=== PATIENT | female | born 1985 | race Caucasian/White ===

== ENCOUNTER 2018-07-21 09:07 | Emergency (ER) | payer BC ==
[2018-07-21] MEDS: FAMOTIDINE 20 MG INJ IV (10:16)
[2018-07-21] MEDS: KETOROLAC 30 MG INJ IV (10:16)
[2018-07-21] MEDS: SOD CHLORIDE 0.9% 1,000 ML IV (10:16)
[2018-07-21] MEDS: ONDANSETRON 4 MG INJ IV (10:16)
[2018-07-21 10:25] LABS: ADD UMIC YES; UR ASCORBIC ACID NEGATIVE (NEGATIVE); UR BACTERIA FEW /HPF (NONE SEEN); UR BILIRUBIN (Dip) NEGATIVE (NEGATIVE); UR BLOOD (Dip) 1+ mg/dL (NEGATIVE); UR CLARITY CLOUDY (CLEAR); UR COLOR YELLOW (YELLOW); UR GLUCOSE (Dip) NEGATIVE (NEGATIVE); UR KETONES (Dip) NEGATIVE (NEGATIVE); UR LEUKOCYTE ESTERASE (Dip) 3+ Leu/ul (NEGATIVE); UR MUCUS FEW /HPF (NONE SEEN); UR NITRITE (Dip) NEGATIVE (NEGATIVE); UR RBC 5 /HPF (0-5); UR SPECIFIC GRAVITY (Dip) 1.014 (1.003-1.030); UR SQUAMOUS EPITHELIAL CELL MODERATE /HPF (FEW); UR TOTAL PROTEIN (Dip) NEGATIVE (NEGATIVE); UR UROBILINOGEN (Dip) NEGATIVE (NEGATIVE); UR WBC > 182 /HPF (0-5)
[2018-07-21 10:35] LABS: ADD MAN DIFF? NO
[2018-07-21 10:37] LABS: BASOPHIL # 0.1 10^3/ul (0.0-0.1); BASOPHILS % 0.6 % (0.0-2.0); EOSINOPHILS # 0.1 10^3/ul (0.0-0.5); EOSINOPHILS % 1.7 % (0.0-7.0); HEMATOCRIT 36.2 % (37.0-47.0); HEMOGLOBIN 11.7 g/dl (12.0-16.0); LYMPHOCYTES # 2.5 10^3/ul (0.8-2.9); LYMPHOCYTES % 31.5 % (15.0-51.0); MEAN CORPUSCULAR HEMOGLOBIN 28.4 pg (29.0-33.0); MEAN CORPUSCULAR HGB CONC 32.3 g/dl (32.0-37.0); MEAN CORPUSCULAR VOLUME 87.9 fl (82.0-101.0); MEAN PLATELET VOLUME 9.4 fl (7.4-10.4); MONOCYTE # 0.5 10^3/ul (0.3-0.9); MONOCYTES % 6.5 % (0.0-11.0); NEUTROPHIL # 4.7 10^3/ul (1.6-7.5); NEUTROPHILS % 59.2 % (39.0-77.0); PLATELET COUNT 241 10^3/UL (140-415); RED BLOOD COUNT 4.12 10^6/ul (4.20-5.40); RED CELL DISTRIBUTION WIDTH 13.2 % (11.5-14.5)
[2018-07-21 10:59] LABS: ALANINE AMINOTRANSFERASE 39 IU/L (13-69); ALBUMIN 3.7 g/dl (3.3-4.9); ALBUMIN/GLOBULIN RATIO 1.08; ALKALINE PHOSPHATASE 63 IU/L (42-121); ANION GAP 7 (5-13); ASPARTATE AMINO TRANSFERASE 25 IU/L (15-46); BLOOD UREA NITROGEN 7 mg/dl (7-20); CALCIUM 8.8 mg/dl (8.4-10.2); CARBON DIOXIDE 27 mmol/L (21-31); CHLORIDE 107 mmol/L (97-110); Estimated GFR > 60 mL/min (>60); GLUCOSE 91 mg/dl (70-220); LIPASE 106 U/L (23-300); POTASSIUM 3.6 mmol/L (3.5-5.1); SODIUM 141 mmol/L (135-144); TOTAL PROTEIN 7.1 g/dl (6.1-8.1)
== END 2018-07-21 13:17 | disposition home or self-care (01) ==
LOC: FTE 09:07
DX: K80.20 Calculus of gallbladder without cholecystitis without obstruction (principal)
CPT/HCPCS: 76705; 80053; 81001; 81025; 83690; 85025; 96361; 96374; 96375; 99285-25

== ENCOUNTER 2018-07-22 14:05 | Inpatient (IN) | payer BC ==
[2018-07-22 17:36] LABS: ADD MAN DIFF? NO
[2018-07-22 17:43] LABS: BASOPHIL # 0.1 10^3/ul (0.0-0.1); BASOPHILS % 0.4 % (0.0-2.0); EOSINOPHILS % 0.1 % (0.0-7.0); HEMATOCRIT 41.6 % (37.0-47.0); HEMOGLOBIN 13.6 g/dl (12.0-16.0); LYMPHOCYTES # 1.9 10^3/ul (0.8-2.9); LYMPHOCYTES % 14.5 % (15.0-51.0); MEAN CORPUSCULAR HEMOGLOBIN 28.1 pg (29.0-33.0); MEAN CORPUSCULAR HGB CONC 32.7 g/dl (32.0-37.0); MEAN PLATELET VOLUME 9.8 fl (7.4-10.4); MONOCYTE # 0.5 10^3/ul (0.3-0.9); MONOCYTES % 3.6 % (0.0-11.0); NEUTROPHIL # 10.8 10^3/ul (1.6-7.5); PLATELET COUNT 298 10^3/UL (140-415); RED BLOOD COUNT 4.84 10^6/ul (4.20-5.40); RED CELL DISTRIBUTION WIDTH 13.4 % (11.5-14.5)
[2018-07-22 17:43] LABS: WHITE BLOOD COUNT 13.3 10^3/ul (4.8-10.8)
[2018-07-22] MEDS: morphine 4 MG/ML VIAL IV (17:43)
[2018-07-22] MEDS: SOD CHLORIDE 0.9% 1,000 ML IV (17:44)
[2018-07-22] MEDS: ONDANSETRON 4 MG INJ IV (17:44)
[2018-07-22 18:05] LABS: INR 0.88; PARTIAL THROMBOPLASTIN TIME 26.6 Sec (23.0-35.0); PT RATIO 0.9
[2018-07-22 18:06] LABS: ALANINE AMINOTRANSFERASE 45 IU/L (13-69); ALBUMIN 4.7 g/dl (3.3-4.9); ALBUMIN/GLOBULIN RATIO 1.11; ALKALINE PHOSPHATASE 87 IU/L (42-121); ANION GAP 13 (5-13); ASPARTATE AMINO TRANSFERASE 41 IU/L (15-46); BILIRUBIN,INDIRECT 0.3 mg/dl (0-1.1); BILIRUBIN,TOTAL 0.3 mg/dl (0.2-1.3); BLOOD UREA NITROGEN 10 mg/dl (7-20); CALCIUM 9.7 mg/dl (8.4-10.2); CARBON DIOXIDE 23 mmol/L (21-31); CHLORIDE 104 mmol/L (97-110); CREATININE 0.59 mg/dl (0.44-1.00); Estimated GFR > 60 mL/min (>60); GLUCOSE 97 mg/dl (70-220); LIPASE 124 U/L (23-300); POTASSIUM 3.6 mmol/L (3.5-5.1); SODIUM 140 mmol/L (135-144); TOTAL PROTEIN 8.9 g/dl (6.1-8.1)
[2018-07-22] MEDS ORDERED: morphine 4 MG/ML VIAL IV (22:00)
[2018-07-22] MEDS ORDERED: HYDROCODONE/APAP (5/325) TAB PO (22:00)
[2018-07-22] MEDS ORDERED: ACETAMINOPHEN 500 MG TAB PO (22:00)
[2018-07-22] MEDS: D5W-0.45 NACL + KCL 20 MEQ 1,000 ML IV (22:32)
[2018-07-22] MEDS: morphine 2 MG INJ IV (22:44)
[2018-07-22] MEDS: LEVOFLOXACIN 500MG/D5W (PMX) 100 ML IVPB (22:44)
[2018-07-23 05:16] LABS: ADD MAN DIFF? NO
[2018-07-23 05:19] LABS: WHITE BLOOD COUNT 9.1 10^3/ul (4.8-10.8)
[2018-07-23 05:19] LABS: BASOPHIL # 0.1 10^3/ul (0.0-0.1); BASOPHILS % 0.6 % (0.0-2.0); EOSINOPHILS # 0.1 10^3/ul (0.0-0.5); EOSINOPHILS % 0.7 % (0.0-7.0); HEMOGLOBIN 11.5 g/dl (12.0-16.0); LYMPHOCYTES # 2.8 10^3/ul (0.8-2.9); LYMPHOCYTES % 30.6 % (15.0-51.0); MEAN CORPUSCULAR HEMOGLOBIN 27.7 pg (29.0-33.0); MEAN CORPUSCULAR HGB CONC 31.9 g/dl (32.0-37.0); MEAN CORPUSCULAR VOLUME 86.7 fl (82.0-101.0); MEAN PLATELET VOLUME 10.3 fl (7.4-10.4); MONOCYTE # 0.7 10^3/ul (0.3-0.9); MONOCYTES % 7.3 % (0.0-11.0); NEUTROPHIL # 5.5 10^3/ul (1.6-7.5); NEUTROPHILS % 60.5 % (39.0-77.0); PLATELET COUNT 252 10^3/UL (140-415); RED BLOOD COUNT 4.15 10^6/ul (4.20-5.40); RED CELL DISTRIBUTION WIDTH 13.6 % (11.5-14.5)
[2018-07-23 05:43] LABS: ALANINE AMINOTRANSFERASE 36 IU/L (13-69); ALBUMIN 3.5 g/dl (3.3-4.9); ALBUMIN/GLOBULIN RATIO 1.09; ALKALINE PHOSPHATASE 59 IU/L (42-121); AMYLASE 64 U/L (11-123); ANION GAP 6 (5-13); ASPARTATE AMINO TRANSFERASE 31 IU/L (15-46); BILIRUBIN,INDIRECT 0.3 mg/dl (0-1.1); BILIRUBIN,TOTAL 0.3 mg/dl (0.2-1.3); BLOOD UREA NITROGEN 10 mg/dl (7-20); CALCIUM 8.8 mg/dl (8.4-10.2); CARBON DIOXIDE 25 mmol/L (21-31); CHLORIDE 110 mmol/L (97-110); CREATININE 0.61 mg/dl (0.44-1.00); Estimated GFR > 60 mL/min (>60); GLUCOSE 86 mg/dl (70-220); LIPASE 109 U/L (23-300); POTASSIUM 4.2 mmol/L (3.5-5.1); SODIUM 141 mmol/L (135-144); TOTAL PROTEIN 6.7 g/dl (6.1-8.1)
[2018-07-23 08:54] LABS: INR 1.01; PROTIME 13.4 Sec (11.9-14.9)
[2018-07-23 08:55] LABS: PARTIAL THROMBOPLASTIN TIME 29.2 Sec (23.0-35.0)
[2018-07-23] MEDS: INFLUENZA VIRUS VACCINE 0.5 ML (DISPENSING) IM* (09:00)
[2018-07-23] MEDS: D5W-0.45 NACL + KCL 20 MEQ 1,000 ML IV ×3 (10:10→22:35)
[2018-07-23] MEDS: morphine 2 MG INJ IV ×2 (10:38→18:32)
[2018-07-23] MEDS: LEVOFLOXACIN 500MG/D5W (PMX) 100 ML IVPB (21:21)
[2018-07-24] MEDS: morphine 2 MG INJ IV ×3 (03:39→22:20)
[2018-07-24] MEDS: D5W-0.45 NACL + KCL 20 MEQ 1,000 ML IV ×3 (04:00→19:34)
[2018-07-24 15:28] LABS: ALANINE AMINOTRANSFERASE 50 IU/L (13-69); ALKALINE PHOSPHATASE 72 IU/L (42-121); ANION GAP 7 (5-13); ASPARTATE AMINO TRANSFERASE 41 IU/L (15-46); BILIRUBIN,INDIRECT 0.3 mg/dl (0-1.1); BILIRUBIN,TOTAL 0.3 mg/dl (0.2-1.3); BLOOD UREA NITROGEN 6 mg/dl (7-20); CARBON DIOXIDE 23 mmol/L (21-31); CHLORIDE 110 mmol/L (97-110); CREATININE 0.55 mg/dl (0.44-1.00); Estimated GFR > 60 mL/min (>60); GLUCOSE 90 mg/dl (70-220); POTASSIUM 4.2 mmol/L (3.5-5.1); SODIUM 140 mmol/L (135-144)
[2018-07-24 15:29] LABS: ALBUMIN 3.8 g/dl (3.3-4.9); ALBUMIN/GLOBULIN RATIO 1.11; TOTAL PROTEIN 7.2 g/dl (6.1-8.1)
[2018-07-24] MEDS: LEVOFLOXACIN 500MG/D5W (PMX) 100 ML IVPB (21:23)
[2018-07-25 05:31] LABS: ADD MAN DIFF? NO
[2018-07-25 05:42] LABS: WHITE BLOOD COUNT 6.5 10^3/ul (4.8-10.8)
[2018-07-25 05:42] LABS: BASOPHILS % 0.6 % (0.0-2.0); EOSINOPHILS # 0.1 10^3/ul (0.0-0.5); EOSINOPHILS % 2.2 % (0.0-7.0); HEMATOCRIT 36.7 % (37.0-47.0); LYMPHOCYTES # 2.1 10^3/ul (0.8-2.9); LYMPHOCYTES % 32.3 % (15.0-51.0); MEAN CORPUSCULAR HEMOGLOBIN 28.1 pg (29.0-33.0); MEAN CORPUSCULAR HGB CONC 32.7 g/dl (32.0-37.0); MEAN CORPUSCULAR VOLUME 85.9 fl (82.0-101.0); MONOCYTE # 0.5 10^3/ul (0.3-0.9); MONOCYTES % 7.7 % (0.0-11.0); NEUTROPHIL # 3.7 10^3/ul (1.6-7.5); PLATELET COUNT 243 10^3/UL (140-415); RED BLOOD COUNT 4.27 10^6/ul (4.20-5.40); RED CELL DISTRIBUTION WIDTH 13.5 % (11.5-14.5)
[2018-07-25 06:00] LABS: LIPASE 134 U/L (23-300)
[2018-07-25] MEDS: D5W-0.45 NACL + KCL 20 MEQ 1,000 ML IV ×3 (06:35→19:23)
[2018-07-25] MEDS: morphine 2 MG INJ IV ×3 (06:37→22:53)
[2018-07-25] MEDS ORDERED: CIPRO 400 MG/200 ML D5W IVPB (07:00)
[2018-07-25] MEDS ORDERED: IOHEXOL 300MG/ML 30 ML BTL (10:16)
[2018-07-25] MEDS ORDERED: PROPOFOL 20 ML (10:24)
[2018-07-25] MEDS ORDERED: ROCURONIUM 50 MG INJ (10:26)
[2018-07-25] MEDS ORDERED: DEXAMETHASONE 4 MG/ML 5 ML INJ (11:05)
[2018-07-25] MEDS ORDERED: ONDANSETRON 4 MG INJ (11:05)
[2018-07-25] MEDS ORDERED: NEOSTIGMINE 10 MG INJ (11:39)
[2018-07-25] MEDS ORDERED: GLYCOPYRROLATE 0.4 MG INJ (11:40)
[2018-07-25] MEDS ORDERED: SUGAMMADEX SODIUM 200 MG/2 ML VIAL IV (11:41)
[2018-07-25] MEDS ORDERED: MIDAZOLAM 1 MG/ML 2 ML INJ IV (12:00)
[2018-07-25] MEDS ORDERED: ALBUTEROL 0.083% (NEB) 2.5 MG/3 ML AMP HHN (12:00)
[2018-07-25] MEDS ORDERED: ONDANSETRON 4 MG INJ IV (12:00)
[2018-07-25] MEDS ORDERED: EPHEDrine SULFATE 50 MG/5 ML SYG IV (12:00)
[2018-07-25] MEDS ORDERED: FENTAnyl 50 MCG/ML VIAL IV ×3 (12:00)
[2018-07-25] MEDS ORDERED: MEPERIDINE 25 MG INJ IV (12:00)
[2018-07-25] MEDS ORDERED: hydrALAzine 20 MG INJ IV (12:00)
[2018-07-25] MEDS ORDERED: KETOROLAC 30 MG INJ IV (12:00)
[2018-07-25] MEDS ORDERED: LABETALOL HCL 20MG INJ IV (12:00)
[2018-07-25] MEDS ORDERED: METOCLOPRAMIDE 10 MG INJ IV (12:00)
[2018-07-25] MEDS ORDERED: DIPHENHYDRAMINE 50 MG INJ IV (12:00)
[2018-07-25] MEDS ORDERED: HYDROmorphONE 1 MG/5 ML IV SYRINGE IV ×2 (12:00)
[2018-07-25] MEDS: HYDROmorphONE 1 MG/5 ML IV SYRINGE IV (12:38)
[2018-07-25] MEDS: LEVOFLOXACIN 500MG/D5W (PMX) 100 ML IVPB (21:07)
[2018-07-26 05:15] LABS: ADD MAN DIFF? NO
[2018-07-26 05:20] LABS: WHITE BLOOD COUNT 7.8 10^3/ul (4.8-10.8)
[2018-07-26 05:20] LABS: BASOPHILS % 0.1 % (0.0-2.0); HEMATOCRIT 36.2 % (37.0-47.0); LYMPHOCYTES # 1.2 10^3/ul (0.8-2.9); LYMPHOCYTES % 14.9 % (15.0-51.0); MEAN CORPUSCULAR HEMOGLOBIN 28.3 pg (29.0-33.0); MEAN CORPUSCULAR HGB CONC 33.1 g/dl (32.0-37.0); MEAN CORPUSCULAR VOLUME 85.4 fl (82.0-101.0); MEAN PLATELET VOLUME 9.7 fl (7.4-10.4); MONOCYTE # 0.5 10^3/ul (0.3-0.9); MONOCYTES % 6.7 % (0.0-11.0); NEUTROPHIL # 6.1 10^3/ul (1.6-7.5); PLATELET COUNT 263 10^3/UL (140-415); RED BLOOD COUNT 4.24 10^6/ul (4.20-5.40); RED CELL DISTRIBUTION WIDTH 13.5 % (11.5-14.5)
[2018-07-26] MEDS: PANTOPRAZOLE 40 MG INJ IV (05:24)
[2018-07-26] MEDS: D5W-0.45 NACL + KCL 20 MEQ 1,000 ML IV (05:24)
[2018-07-26 05:45] LABS: ALANINE AMINOTRANSFERASE 47 IU/L (13-69); ALBUMIN 3.7 g/dl (3.3-4.9); ALBUMIN/GLOBULIN RATIO 1.05; ALKALINE PHOSPHATASE 72 IU/L (42-121); ANION GAP 8 (5-13); ASPARTATE AMINO TRANSFERASE 32 IU/L (15-46); BILIRUBIN,INDIRECT 0.2 mg/dl (0-1.1); BILIRUBIN,TOTAL 0.2 mg/dl (0.2-1.3); BLOOD UREA NITROGEN 8 mg/dl (7-20); CALCIUM 9.2 mg/dl (8.4-10.2); CARBON DIOXIDE 22 mmol/L (21-31); CHLORIDE 111 mmol/L (97-110); CREATININE 0.62 mg/dl (0.44-1.00); Estimated GFR > 60 mL/min (>60); GLUCOSE 112 mg/dl (70-220); POTASSIUM 4.5 mmol/L (3.5-5.1); SODIUM 141 mmol/L (135-144); TOTAL PROTEIN 7.2 g/dl (6.1-8.1)
[2018-07-26] MEDS: morphine 2 MG INJ IV ×2 (05:49→18:52)
[2018-07-26] MEDS: LACTATED RINGER'S 1,000 ML IV ×3 (10:58→20:58)
[2018-07-26] MEDS: LEVOFLOXACIN 500MG/D5W (PMX) 100 ML IVPB (20:58)
[2018-07-27] MEDS: ONDANSETRON 4 MG INJ IV ×2 (01:07→09:41)
[2018-07-27] MEDS: LACTATED RINGER'S 1,000 ML IV ×3 (04:30→17:55)
[2018-07-27] MEDS: PANTOPRAZOLE 40 MG INJ IV (05:14)
[2018-07-27 05:18] LABS: ADD MAN DIFF? NO
[2018-07-27 05:22] LABS: WHITE BLOOD COUNT 8.5 10^3/ul (4.8-10.8)
[2018-07-27 05:22] LABS: BASOPHIL # 0.1 10^3/ul (0.0-0.1); BASOPHILS % 0.7 % (0.0-2.0); EOSINOPHILS # 0.1 10^3/ul (0.0-0.5); EOSINOPHILS % 0.6 % (0.0-7.0); HEMOGLOBIN 11.3 g/dl (12.0-16.0); LYMPHOCYTES # 3.4 10^3/ul (0.8-2.9); LYMPHOCYTES % 40.3 % (15.0-51.0); MEAN CORPUSCULAR HEMOGLOBIN 28.6 pg (29.0-33.0); MEAN CORPUSCULAR HGB CONC 33.2 g/dl (32.0-37.0); MEAN CORPUSCULAR VOLUME 86.1 fl (82.0-101.0); MEAN PLATELET VOLUME 10.1 fl (7.4-10.4); MONOCYTE # 0.6 10^3/ul (0.3-0.9); MONOCYTES % 6.7 % (0.0-11.0); NEUTROPHIL # 4.4 10^3/ul (1.6-7.5); NEUTROPHILS % 51.5 % (39.0-77.0); PLATELET COUNT 235 10^3/UL (140-415); RED BLOOD COUNT 3.95 10^6/ul (4.20-5.40); RED CELL DISTRIBUTION WIDTH 13.6 % (11.5-14.5)
[2018-07-27 05:45] LABS: ALANINE AMINOTRANSFERASE 52 IU/L (13-69); ALBUMIN 3.2 g/dl (3.3-4.9); ALKALINE PHOSPHATASE 67 IU/L (42-121); ANION GAP 9 (5-13); ASPARTATE AMINO TRANSFERASE 34 IU/L (15-46); BILIRUBIN,INDIRECT 0.3 mg/dl (0-1.1); BILIRUBIN,TOTAL 0.3 mg/dl (0.2-1.3); BLOOD UREA NITROGEN 8 mg/dl (7-20); CALCIUM 8.7 mg/dl (8.4-10.2); CARBON DIOXIDE 24 mmol/L (21-31); CHLORIDE 107 mmol/L (97-110); CREATININE 0.57 mg/dl (0.44-1.00); Estimated GFR > 60 mL/min (>60); GLUCOSE 81 mg/dl (70-220); SODIUM 140 mmol/L (135-144); TOTAL PROTEIN 6.4 g/dl (6.1-8.1)
[2018-07-27] MEDS: INDOMETHACIN 50 MG SUPP PR (07:56)
[2018-07-27] MEDS: BISACODYL 10 MG SUPP PR (13:06)
[2018-07-27] MEDS: morphine 2 MG INJ IV (18:00)
[2018-07-27] MEDS: LEVOFLOXACIN 500MG/D5W (PMX) 100 ML IVPB (22:04)
[2018-07-28] MEDS: LACTATED RINGER'S 1,000 ML IV ×2 (06:08→16:44)
[2018-07-28] MEDS: PANTOPRAZOLE 40 MG INJ IV (06:08)
[2018-07-28] MEDS: CLARITHROMYCIN 500 MG TAB PO ×2 (14:59→21:34)
[2018-07-28] MEDS: AMOXICILLIN 500 MG CAP PO ×2 (14:59→21:34)
[2018-07-28] MEDS: LEVOFLOXACIN 500MG/D5W (PMX) 100 ML IVPB (21:34)
[2018-07-29 06:17] LABS: ALANINE AMINOTRANSFERASE 48 IU/L (13-69); ALBUMIN 3.3 g/dl (3.3-4.9); ALBUMIN/GLOBULIN RATIO 1.06; ALKALINE PHOSPHATASE 66 IU/L (42-121); ANION GAP 8 (5-13); ASPARTATE AMINO TRANSFERASE 38 IU/L (15-46); BILIRUBIN,INDIRECT 0.3 mg/dl (0-1.1); BILIRUBIN,TOTAL 0.3 mg/dl (0.2-1.3); BLOOD UREA NITROGEN 6 mg/dl (7-20); CALCIUM 8.6 mg/dl (8.4-10.2); CARBON DIOXIDE 23 mmol/L (21-31); CHLORIDE 108 mmol/L (97-110); CREATININE 0.55 mg/dl (0.44-1.00); Estimated GFR > 60 mL/min (>60); GLUCOSE 85 mg/dl (70-220); POTASSIUM 3.8 mmol/L (3.5-5.1); SODIUM 139 mmol/L (135-144); TOTAL PROTEIN 6.4 g/dl (6.1-8.1)
[2018-07-29] MEDS: LACTATED RINGER'S 1,000 ML IV ×2 (06:30→14:31)
[2018-07-29] MEDS: PANTOPRAZOLE 40 MG INJ IV (06:43)
[2018-07-29] MEDS: CLARITHROMYCIN 500 MG TAB PO (09:14)
[2018-07-29] MEDS: AMOXICILLIN 500 MG CAP PO (09:15)
== END 2018-07-29 17:10 | disposition home or self-care (01) | DRG 446 ==
LOC: FTE 14:05 → MS1 18:38
PROC: 0FC98ZZ Extirpation of Matter from Common Bile Duct, Via Natural or Artificial Opening Endoscopic (ICD-10-PCS; principal; 2018-07-25 10:30)
PROC: 0F7D8DZ Dilation of Pancreatic Duct with Intraluminal Device, Via Natural or Artificial Opening Endoscopic (ICD-10-PCS; 2018-07-25 10:30)
PROC: 0DB78ZX Excision of Stomach, Pylorus, Via Natural or Artificial Opening Endoscopic, Diagnostic (ICD-10-PCS; 2018-07-25 10:30)
DX: K80.50 Calculus of bile duct without cholangitis or cholecystitis without obstruction (principal); K26.9 Duodenal ulcer, unspecified as acute or chronic, without hemorrhage or perforation; E66.9 Obesity, unspecified; K29.50 Unspecified chronic gastritis without bleeding; B96.81 Helicobacter pylori [H. pylori] as the cause of diseases classified elsewhere; K59.00 Constipation, unspecified
CPT/HCPCS: 74181; 74330; 80053; 81025; 82150; 83690; 84703; 85025; 85610; 85730; 86850; 86900; 86901; 88305; 88312; 90686